=== PATIENT | male | born 1965 | race Hispanic/Latino ===

== ENCOUNTER 2018-04-26 22:57 | Emergency (ER) | payer SELFPAY ==
[2018-04-27 00:02] VITALS: BP 99/67
== END 2018-04-27 04:00 | disposition left against medical advice (07) ==
LOC: ED 22:57
DX: R42 Dizziness and giddiness (principal); Z53.21 Procedure and treatment not carried out due to patient leaving prior to being seen by health care provider
CPT/HCPCS: 93005; 93010

== ENCOUNTER 2020-12-28 17:21 | Emergency (ER) | payer SELFPAY | END 2020-12-28 19:00 | disposition left against medical advice (07) | LOC: ED 17:21 | DX: Z00.8 Encounter for other general examination (principal); Z53.21 Procedure and treatment not carried out due to patient leaving prior to being seen by health care provider ==

== ENCOUNTER 2020-12-28 20:06 | Emergency (ER) | payer SELFPAY ==
--- NOTE | 2020-12-28 20:29 | Event Note ---
ED Screening Note Date of service: 12/28/20 Time: 20:27 ED Screening Note: Pt presents with multiple complaints of back pain, anxiety, and feeling unsafe at home hx of schizoaffective disorder pt's history is scattered and he is unable to give a clear reason of why he is here in the ED today This initial assessment/diagnostic orders/clinical plan/treatment(s) is/are subject to change based on patients health status, clinical progression and re- assessment by fellow clinical providers in the ED. Further treatment and workup at subsequent clinical providers discretion. Patient/guardian urged not to elope from the ED as their condition may be serious if not clinically assessed and managed. Initial orders include: labs mental health eval
[2020-12-28 21:03] LABS: Basophils % (Auto) 0.5 % (0.0-1.8); Eosinophils # (Auto) 0.1 K/mm3 (0.0-0.4); Eosinophils % (Auto) 1.1 % (0.0-4.3); Hematocrit 47.6 % (35.5-45.6); Hemoglobin 16.6 gm/dl (11.8-15.2); Lymphocytes # (Auto) 2.1 K/mm3 (1.2-5.4); Mean Corpuscular HGB Conc 35 % (32-34); Mean Corpuscular Volume 98 fl (84-94); Monocytes # (Auto) 1.4 K/mm3 (0.0-0.8); Monocytes % (Auto) 15.2 % (0.0-7.3); Platelet Count 303 K/mm3 (140-440); Red Blood Count 4.87 M/mm3 (3.65-5.03); Red Cell Distribution Width 13.6 % (13.2-15.2)
[2020-12-28 21:18] LABS: Alanine Aminotransferase 9 units/L (7-56); Albumin 3.7 g/dL (3.9-5); BUN/Creatinine Ratio 14; Blood Urea Nitrogen 13 mg/dL (9-20); Calcium 8.7 mg/dL (8.4-10.2); Hemolysis Index 15
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
[2020-12-28 22:12] LABS: Amphetamine Screen,Urine Negative; Benzodiazepines Screen,Urine Negative; Cannabinoid Screen,Urine Negative; Cocaine Screen,Urine Negative; Methadone Screen,Urine Negative; Opiate Screen,Urine Negative
[2020-12-29 00:57] LABS: Bacteria,Urine 1+ /HPF (Negative); Bilirubin,Urine NEG (Negative); Blood,Urine NEG (Negative); Color,Urine Yellow (Yellow); Mucus,Urine FEW /HPF; Protein,Urine <15 mg/dL mg/dL (Negative); WBC,Urine < 1.0 /HPF (0.0-6.0)
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
[2020-12-29] MEDS: DIVALPROEX DR 125 MG TAB PO SCH ×2 (11:15→22:25)
[2020-12-29] MEDS: NICOTINE 21 MG/24 HR PATCH TD SCH (11:15)
[2020-12-29] MEDS: risperiDONE 0.25 MG TAB PO SCH ×2 (11:16→22:25)
[2020-12-29] MEDS ORDERED: traZODone 50 MG TAB PO SCH (22:00)
--- NOTE | 2020-12-30 08:24 | Progress Note ---
Subjective - Reason for Consult Consult date: 12/30/20 Reason for consult: psychosis - Chief Complaint Chief complaint: The patient was seen today. He is lying down in bed. His thought process is much clearer today. He is a/o x 3. He is asking me to call "Mrs. Stephenson." He is conversational and asking to go home. The patient says "I feel much better, just a little tired because I didn't sleep as well being here." He denies SI/HI or hallucinations of any kind. It is documented that [facility] director states the patient is due for his invega sustenna injection. Will give prior to discharge. MENTAL STATUS EXAMINATION General Appearance and Behavior: Age appropriate, good hygiene, wearing appropriate clothes, calm and cooperative Cooperation: cooperative Psychomotor Behavior: Psychomotor normal Mood: Depressed Affect and affective range: restricted Thought Process: Goal directed Thought Content: None Speech: Normal rate, volume and rhythm Suicidal Ideation: Denies Homicidal Ideation: Denies Hallucinations: Denies Delusions: None elicited Impulse Control: Impaired Insight and Judgment: Limited insight and judgment Memory: Limited Attention: Normal Orientation: Alert, oriented. Assessment and Plan (1) Schizoaffective Disorder Current Visit: Yes Status: Acute Treatment Plan Geremias DR 125mg po BID Risperidone 0.25mg po BID Trazodone 50mg po qhs Nicotine patch 21mg daily Give Invega Sustenna injection prior to discharge. Sitter: defer to primary Medical: per primary Disposition: Do not Recommend acute inpatient treatment. He understands that if SI/HI or any fear of endangerment are to arise he is to seek immediate assistance, including but not limited to 911/ER, crisis hotline. The patient to follow up with outpatient psychiatry in 7 to 14 days upon discharge. The billing assistant to give the patient outpatient resources, CBT, med assistance Will sign off. Case staffed with Dr. Dey. Mental Status Exam - Vital signs Last Vital Signs Temp 97.7 F 12/30/20 08:12 Pulse 50 L 12/30/20 08:12 Resp 18 12/30/20 08:13 BP 97/53 12/30/20 08:12 Pulse Ox 98 12/30/20 08:13
[2020-12-30] MEDS ORDERED: PALIPERIDONE PALMITATE 156 MG/ML INJ IM NR (08:30)
[2020-12-30] MEDS: risperiDONE 0.25 MG TAB PO SCH (10:30)
[2020-12-30] MEDS: DIVALPROEX DR 125 MG TAB PO SCH (10:30)
[2020-12-30] MEDS: NICOTINE 21 MG/24 HR PATCH TD SCH (10:30)
[2020-12-30 11:25] VITALS: BP 105/70
== END 2020-12-30 11:01 | disposition home or self-care (01) ==
LOC: ED 20:06
DX: R44.3 Hallucinations, unspecified (principal); R45.850 Homicidal ideations; F17.200 Nicotine dependence, unspecified, uncomplicated; Z88.0 Allergy status to penicillin; Z20.822 Contact with and (suspected) exposure to COVID-19
CPT/HCPCS: 36415; 80053; 80307; 81001; 85025; 99284; U0003; 80320; G0480